=== PATIENT | female | born 1975 | race Caucasian/White ===

== ENCOUNTER 2022-01-20 21:03 | Emergency (ER) | payer BC ==
[~2022-01-20] VITALS: Ht 154.9 cm; Wt 67.6 kg
[2022-01-20 21:13] VITALS: BP_SYST 151
[2022-01-21] MEDS ORDERED: IBUP-1969 PO (00:21)
[2022-01-21 03:25] VITALS: BP_SYST 122
== END 2022-01-21 02:15 | disposition home or self-care (01) ==
LOC: SED 21:03
DX: S42.295A Other nondisplaced fracture of upper end of left humerus, initial encounter for closed fracture (principal); Z79.899 Other long term (current) drug therapy; W01.0XXA Fall on same level from slipping, tripping and stumbling without subsequent striking against object, initial encounter; Y93.89 Activity, other specified; Y92.89 Other specified places as the place of occurrence of the external cause; Y99.8 Other external cause status
CPT/HCPCS: 73030; 73200-TC; 76376; 99284